=== PATIENT | female | born 1950 | race Caucasian/White ===

== ENCOUNTER → 2016-12-11 | Outpatient (CLI) | payer OTHER ==
--- NOTE | 2016-12-11 14:14 | RAD ---
HISTORY: Spinal stenosis, back pain Study: Lumbar spine AP and lateral Comparison: None Findings: The alignment is normal. The vertebral bodies are of average height. The disc spaces are preserved w ith the exception of degenerative disc disease at L5-S1. Facet degenerative joint disease is present in the lower lumbar spine. The pedicles are intact. The SI joints are normal. Incidental note is ma de of extensive calcification in the abdominal aorta with a question of a mid abdominal aorta up ane urysm having a maximum AP diameter of approximately 4.[address] of the abdo men pelvis with contrast is recommended. IMPRESSION: Degenerative disc disease L5-S1. Facet degenerative joint disease Likely partially calcified mid abdominal aortic aneurysm having a maximum diameter approximately 4.[address] abdomen pelvis with contrast is recommended for further evaluation. Reported By:
== END | disposition home or self-care (01) | DRG 552 ==
LOC: RAD 13:44
PROVIDERS: ATTEND Obstetrics & Gynecology Obstetrics
DX: M48.06 Spinal stenosis, lumbar region (principal); M51.37 Other intervertebral disc degeneration, lumbosacral region; M47.896 Other spondylosis, lumbar region
CPT/HCPCS: 72100

== ENCOUNTER → 2016-12-15 | Outpatient (CLI) | payer OTHER ==
[2016-12-15 11:29] LABS: CREATININE 3.35 mg/dL (0.55-1.02)
--- NOTE | 2016-12-15 12:51 | CT ---
HISTORY: Abnormal x-ray with question of abdominal aortic aneurysm. Study: CT abdomen and pelvis without contrast Comparison: Lumbar spine series dated December 11, 2016. Technique: Multiple axial images of the abdomen and pelvis were obtained from the lung bases to the pubic symph ysis after/ without/ both prior to and after the administration of IV contrast. Dose reduction tech niques including Automated Exposure Control (AEC) and adjustment of mA and kV were utilized. Findings: Bibasilar scarring versus atelectasis. Otherwise, the visualized portions of the lung bases are unre markable. Severe atherosclerotic vascular calcifications of the visualized coronary arteries. The ki dneys are small likely representing chronic renal disease. Likely vascular calcifications within the bilateral kidneys. The liver, spleen, pancreas, and adrenal glands are unremarkable in their CT ellie earance. Multiple gallstones are seen within the gallbladder without CT evidence to suggest cholecys titis. No significant mesenteric lymphadenopathy or stranding can be observed. No free fluid or fr ee air is seen within the abdomen. Moderate to severe atherosclerotic vascular calcifications of th e abdominal aorta and its major branch vessels. There is an infrarenal fusiform abdominal aortic ane urysm that measures 4.0 cm AP by 3.7 cm transverse in greatest dimension. No obvious mural thrombus on this non contrast study. Scattered colonic diverticula without evidence of diverticulitis. The la rge and small bowel otherwise appear normal. The appendix is normal. The uterus and ovaries are surg ically absent. The urinary bladder is grossly unremarkable. Degenerative changes of the spine. No a ggressive osseous lesions. IMPRESSION: 1. 4 cm abdominal aortic ultrasound as above. Recommend followup CT or ultrasound to document stabi lity in 12 months. 2. Other chronic findings as above. Reported By:
== END ==
LOC: RAD 10:50
PROVIDERS: ATTEND Obstetrics & Gynecology Obstetrics
DX: I71.9 Aortic aneurysm of unspecified site, without rupture (principal)
CPT/HCPCS: 36415; 74176; 82565; 84520

== ENCOUNTER 2016-12-18 14:51 | Inpatient (IN) | payer OTHER ==
[2016-12-18 15:32] LABS: MONOCYTES # (AUTO) 0.7 x10^3/uL (0.3-0.8); RED BLOOD COUNT 1.86 X10^6/uL (3.5-5.4); RED CELL DISTRIBUTION WIDTH 18.3 % (11.6-16.5)
[2016-12-18 15:38] LABS: BASOPHILS % (AUTO) 0.3 % (0.2-1.0); EOSINOPHILS % (AUTO) 0.4 % (0.9-2.9); LYMPHOCYTES # (AUTO) 1.3 X10^3/uL (1.3-2.9); LYMPHOCYTES % (AUTO) 14.8 % (21.0-51.0); MEAN CORPUSCULAR HEMOGLOBIN 22.8 pg (27.0-34.0); MEAN CORPUSCULAR HGB CONC 33.4 g/dL (33.0-35.0); MEAN CORPUSCULAR VOLUME 68.1 fL (80.0-100.0); MEAN PLATELET VOLUME 7.3 fL (7.4-11.0); MONOCYTES % (AUTO) 8.1 % (0.0-13.0); NEUTROPHILS # (AUTO) 6.6 x10^3/uL (2.2-4.8); NEUTROPHILS % (AUTO) 76.4 % (42.0-75.0); PLATELET COUNT 409 X10^3/uL (150.0-450.0); WHITE BLOOD COUNT 8.6 X10^3/uL (3.6-10.0)
[2016-12-18 15:39] LABS: ALANINE AMINOTRANSFERASE 249 Units/L (12-78); ALBUMIN 2.5 g/dL (3.4-5.0); ALKALINE PHOSPHATASE 101 Units/L (46-116); ASPARTATE AMINO TRANSFERASE 57 Units/L (15-37); BLOOD ALCOHOL < 3 mg/dL (0-19.9); BLOOD UREA NITROGEN 58 mg/dL (7-18); CALCIUM 8.4 mg/dL (8.5-10.1); CARBON DIOXIDE 20.3 mmol/L (21-32); CHLORIDE 99 mmol/L (98-107); COR CA(FOR HYPOALB) 9.6 mg/dL (8.5-10.1); CREATININE 3.67 mg/dL (0.55-1.02); GLUCOSE 101 mg/dL (65-99); SODIUM 132 mmol/L (136-145); TOTAL PROTEIN 6.4 g/dL (6.4-8.2); eGFR BLACK RACES 16 (>60); eGFR NON BLACK RACES 13 (>60)
[2016-12-18] MEDS: NS 1000 ML 1,000 ML IV SCH (15:53)
[2016-12-18 16:12] LABS: HEMATOCRIT 12.7 % (36.0-47.0); HEMOGLOBIN 4.2 g/dL (12.0-16.0)
[2016-12-18 16:22] LABS: ANISOCYTOSIS 1+; HYPOCHROMASIA 2+; MICROCYTOSIS 2+; PLATELET MORPHOLOGY COMMENT NORMAL (NORMAL); POIKILOCYTOSIS 2+; POLYCHROMASIA 1+
[2016-12-18 16:23] LABS: TARGET CELLS SLIGHT
[2016-12-18 16:54] LABS: IRON 15 ug/dL (50-175); TRANSFERRIN 313 mg/dL (202-364)
[2016-12-18] MEDS ORDERED: AQUA-MEPHYTON ADULT INJ 5 MG in NS 50 ML IV 50 ML IV ONE ×2 (17:20→18:00)
[2016-12-18] MEDS ORDERED: NS 50 ML IV 50 ML IV ONE (17:32)
[2016-12-18] MEDS ORDERED: AQUA-MEPHYTON ADULT INJ ONE (17:33)
[2016-12-18] MEDS ORDERED: NS 250 ML IV 250 ML IV ONE (18:24)
--- NOTE | 2016-12-18 20:24 | US ---
HISTORY: Elevated liver enzymes Study: Right upper quadrant abdominal ultrasound Comparison: CT 12/15/2016 Technique: Multiple franklin scale and color flow Doppler images of the right upper quadrant were obtain ed. Findings: The liver is normal in echotexture and size. No focal intraparenchymal mass or intrahepatic biliary ductal dilatation is observed. Multiple gallstones are present. The common bile duct measures 4 m m. No pericholecystic fluid or gallbladder wall thickening. No sonographic Lagos's sign reported. The right kidney is echogenic compatible with medical renal disease. The right kidney measurers 12 x 6 x 5.2 cm. No evidence of hydronephrosis. The pancreas was not visualized. IMPRESSION: 1. Cholelithiasis without sonographic evidence of cholecystitis. 2. Echogenic appearance of the right kidney suggesting medical renal disease. 3. Normal sonographic appearance of the liver. Reported By:
[2016-12-18] MEDS: LOPRESSOR TAB 50 MG PO SCH (21:08)
[2016-12-18] MEDS: ELAVIL PO SCH (21:08)
[2016-12-18] MEDS: XANAX PO PRN (23:00)
[2016-12-19] MEDS ORDERED: NS 250 ML IV 250 ML IV ONE (00:44)
[2016-12-19 06:27] LABS: ALANINE AMINOTRANSFERASE 201 Units/L (12-78); ALBUMIN 2.3 g/dL (3.4-5.0); ALKALINE PHOSPHATASE 95 Units/L (46-116); ASPARTATE AMINO TRANSFERASE 44 Units/L (15-37); BLOOD UREA NITROGEN 52 mg/dL (7-18); CALCIUM 8.4 mg/dL (8.5-10.1); CARBON DIOXIDE 20.8 mmol/L (21-32); CHLORIDE 103 mmol/L (98-107); COR CA(FOR HYPOALB) 9.8 mg/dL (8.5-10.1); CREATININE 3.23 mg/dL (0.55-1.02); GLUCOSE 97 mg/dL (65-99); SODIUM 134 mmol/L (136-145); TOTAL PROTEIN 6.1 g/dL (6.4-8.2); eGFR BLACK RACES 18 (>60); eGFR NON BLACK RACES 15 (>60)
[2016-12-19] MEDS: NS 1000 ML 1,000 ML IV SCH ×2 (06:32→20:51)
[2016-12-19 06:34] LABS: BASOPHILS % (AUTO) 0.5 % (0.2-1.0); EOSINOPHILS # (AUTO) 0.3 x10^3/uL (0.0-0.2); EOSINOPHILS % (AUTO) 2.5 % (0.9-2.9); LYMPHOCYTES # (AUTO) 1.9 X10^3/uL (1.3-2.9); LYMPHOCYTES % (AUTO) 19.1 % (21.0-51.0); MEAN CORPUSCULAR HEMOGLOBIN 24.5 pg (27.0-34.0); MEAN CORPUSCULAR HGB CONC 33.6 g/dL (33.0-35.0); MEAN CORPUSCULAR VOLUME 73.1 fL (80.0-100.0); MEAN PLATELET VOLUME 7.2 fL (7.4-11.0); MONOCYTES # (AUTO) 0.8 x10^3/uL (0.3-0.8); NEUTROPHILS # (AUTO) 7.1 x10^3/uL (2.2-4.8); NEUTROPHILS % (AUTO) 69.9 % (42.0-75.0); PLATELET COUNT 372 X10^3/uL (150.0-450.0); RED BLOOD COUNT 2.44 X10^6/uL (3.5-5.4); RED CELL DISTRIBUTION WIDTH 19.6 % (11.6-16.5); WHITE BLOOD COUNT 10.1 X10^3/uL (3.6-10.0)
[2016-12-19 06:37] LABS: HEMATOCRIT 17.8 % (36.0-47.0)
[2016-12-19 07:54] LABS: PLATELET MORPHOLOGY COMMENT NORMAL (NORMAL)
[2016-12-19 07:55] LABS: HYPOCHROMASIA 1+; MICROCYTOSIS 1+; POIKILOCYTOSIS 2+; POLYCHROMASIA SLIGHT
[2016-12-19 07:56] LABS: TARGET CELLS SLIGHT
[2016-12-19] MEDS: LOPRESSOR TAB 50 MG PO SCH ×2 (10:07→20:52)
[2016-12-19] MEDS: NICODERM PATCH 21 MG/24 HR TD SCH (10:09)
[2016-12-19 10:30] VITALS: BMI 30.8
[2016-12-19] MEDS ORDERED: NS 500 ML IV 500 ML IV ONE (15:42)
[2016-12-19 18:45] LABS: HEMATOCRIT 22.8 % (36.0-47.0); HEMOGLOBIN 7.7 g/dL (12.0-16.0)
[2016-12-19] MEDS: ELAVIL PO SCH (20:52)
[2016-12-19] MEDS: XANAX PO PRN (20:52)
[2016-12-19 22:45] LABS: HEMATOCRIT 21.3 % (36.0-47.0); HEMOGLOBIN 7.3 g/dL (12.0-16.0)
[2016-12-20 05:46] LABS: BASOPHILS # (AUTO) 0.1 X10^3/uL (0.0-0.1); BASOPHILS % (AUTO) 0.8 % (0.2-1.0); EOSINOPHILS # (AUTO) 0.3 x10^3/uL (0.0-0.2); EOSINOPHILS % (AUTO) 3.8 % (0.9-2.9); HEMATOCRIT 21.4 % (36.0-47.0); HEMOGLOBIN 7.3 g/dL (12.0-16.0); LYMPHOCYTES # (AUTO) 1.5 X10^3/uL (1.3-2.9); LYMPHOCYTES % (AUTO) 16.2 % (21.0-51.0); MEAN CORPUSCULAR HEMOGLOBIN 25.8 pg (27.0-34.0); MEAN CORPUSCULAR VOLUME 75.9 fL (80.0-100.0); MEAN PLATELET VOLUME 7.4 fL (7.4-11.0); MONOCYTES # (AUTO) 0.8 x10^3/uL (0.3-0.8); MONOCYTES % (AUTO) 8.6 % (0.0-13.0); NEUTROPHILS # (AUTO) 6.4 x10^3/uL (2.2-4.8); NEUTROPHILS % (AUTO) 70.6 % (42.0-75.0); PLATELET COUNT 386 X10^3/uL (150.0-450.0); RED BLOOD COUNT 2.82 X10^6/uL (3.5-5.4); RED CELL DISTRIBUTION WIDTH 20.4 % (11.6-16.5)
[2016-12-20 05:47] LABS: ALANINE AMINOTRANSFERASE 165 Units/L (12-78); ALBUMIN 2.4 g/dL (3.4-5.0); ALKALINE PHOSPHATASE 110 Units/L (46-116); ASPARTATE AMINO TRANSFERASE 36 Units/L (15-37); BLOOD UREA NITROGEN 43 mg/dL (7-18); CALCIUM 8.8 mg/dL (8.5-10.1); CHLORIDE 105 mmol/L (98-107); COR CA(FOR HYPOALB) 10.1 mg/dL (8.5-10.1); CREATININE 3.02 mg/dL (0.55-1.02); GLUCOSE 108 mg/dL (65-99); SODIUM 138 mmol/L (136-145); TOTAL PROTEIN 6.4 g/dL (6.4-8.2); eGFR BLACK RACES 20 (>60); eGFR NON BLACK RACES 16 (>60)
[2016-12-20 06:17] LABS: ANISOCYTOSIS 1+; CRENATED RBC 1+; HYPOCHROMASIA 1+; PLATELET MORPHOLOGY COMMENT NORMAL (NORMAL)
[2016-12-20] MEDS ORDERED: NS 250 ML IV 250 ML IV ONE ×3 (07:46→22:02)
[2016-12-20] MEDS: LOPRESSOR TAB 50 MG PO SCH ×2 (09:18→21:00)
[2016-12-20] MEDS: NICODERM PATCH 21 MG/24 HR TD SCH (09:20)
[2016-12-20] MEDS ORDERED: NS 500 ML IV 500 ML IV ONE (11:42)
[2016-12-20] MEDS ORDERED: PATIENT'S HOME MEDICATION (Metoprolol Tartrate [Lopressor Tab 100 Mg] 100 MG) PO SCH (11:45)
[2016-12-20] MEDS ORDERED: NS 100 ML IV 100 ML with VENOFER 400 MG IV NR ×2 (13:00)
[2016-12-20 13:25] LABS: HEMATOCRIT 24.9 % (36.0-47.0); HEMOGLOBIN 8.3 g/dL (12.0-16.0)
[2016-12-20] MEDS ORDERED: AMITRIPTYLINE HCL PO SCH (21:00)
[2016-12-20] MEDS: ELAVIL PO SCH (21:00)
[2016-12-20] MEDS: XANAX PO PRN (23:47)
[2016-12-21] MEDS: NS 1000 ML 1,000 ML IV SCH (03:01)
[2016-12-21 06:17] LABS: ALBUMIN 2.3 g/dL (3.4-5.0); ALKALINE PHOSPHATASE 113 Units/L (46-116); ASPARTATE AMINO TRANSFERASE 31 Units/L (15-37); BASOPHILS # (AUTO) 0.1 X10^3/uL (0.0-0.1); BASOPHILS % (AUTO) 0.6 % (0.2-1.0); BLOOD UREA NITROGEN 35 mg/dL (7-18); CALCIUM 8.5 mg/dL (8.5-10.1); CARBON DIOXIDE 20.5 mmol/L (21-32); CHLORIDE 106 mmol/L (98-107); COR CA(FOR HYPOALB) 9.9 mg/dL (8.5-10.1); CREATININE 2.69 mg/dL (0.55-1.02); EOSINOPHILS # (AUTO) 0.3 x10^3/uL (0.0-0.2); EOSINOPHILS % (AUTO) 3.3 % (0.9-2.9); GLUCOSE 92 mg/dL (65-99); HEMATOCRIT 29.4 % (36.0-47.0); HEMOGLOBIN 9.9 g/dL (12.0-16.0); LYMPHOCYTES # (AUTO) 1.4 X10^3/uL (1.3-2.9); LYMPHOCYTES % (AUTO) 15.2 % (21.0-51.0); MEAN CORPUSCULAR HEMOGLOBIN 26.1 pg (27.0-34.0); MEAN CORPUSCULAR HGB CONC 33.6 g/dL (33.0-35.0); MEAN CORPUSCULAR VOLUME 77.9 fL (80.0-100.0); MEAN PLATELET VOLUME 7.4 fL (7.4-11.0); MONOCYTES # (AUTO) 0.8 x10^3/uL (0.3-0.8); MONOCYTES % (AUTO) 8.5 % (0.0-13.0); NEUTROPHILS # (AUTO) 6.4 x10^3/uL (2.2-4.8); NEUTROPHILS % (AUTO) 72.4 % (42.0-75.0); PLATELET COUNT 332 X10^3/uL (150.0-450.0); RED BLOOD COUNT 3.77 X10^6/uL (3.5-5.4); RED CELL DISTRIBUTION WIDTH 20.9 % (11.6-16.5); SODIUM 135 mmol/L (136-145); TOTAL PROTEIN 6.2 g/dL (6.4-8.2); WHITE BLOOD COUNT 8.9 X10^3/uL (3.6-10.0); eGFR BLACK RACES 23 (>60); eGFR NON BLACK RACES 19 (>60)
[2016-12-21 06:27] LABS: ALANINE AMINOTRANSFERASE 129 Units/L (12-78)
[2016-12-21 07:06] LABS: ANISOCYTOSIS 1+; PLATELET MORPHOLOGY COMMENT NORMAL (NORMAL)
[2016-12-21 08:37] VITALS: BP 127/64
[2016-12-21] MEDS: NICODERM PATCH 21 MG/24 HR TD SCH (08:47)
[2016-12-21] MEDS: LOPRESSOR TAB 50 MG PO SCH (08:48)
[2016-12-21] MEDS ORDERED: NS 100 ML IV 100 ML with VENOFER 400 MG IV NR ×2 (09:00)
== END 2016-12-21 11:45 | disposition home or self-care (01) | DRG 812 ==
LOC: MED/SURG 14:51 → UNDOADMIN 14:51 → MED/SURG 15:00
PROVIDERS: ADMIT Obstetrics & Gynecology Obstetrics; ATTEND Obstetrics & Gynecology Obstetrics
PROC: 30233N1 Transfusion of Nonautologous Red Blood Cells into Peripheral Vein, Percutaneous Approach (ICD-10-PCS; principal; 2016-12-18)
PROC: 30233N1 Transfusion of Nonautologous Red Blood Cells into Peripheral Vein, Percutaneous Approach (ICD-10-PCS; 2016-12-19)
PROC: 30233N1 Transfusion of Nonautologous Red Blood Cells into Peripheral Vein, Percutaneous Approach (ICD-10-PCS; 2016-12-19)
PROC: 30233N1 Transfusion of Nonautologous Red Blood Cells into Peripheral Vein, Percutaneous Approach (ICD-10-PCS; 2016-12-20)
PROC: 30233N1 Transfusion of Nonautologous Red Blood Cells into Peripheral Vein, Percutaneous Approach (ICD-10-PCS; 2016-12-20)
PROC: 30233N1 Transfusion of Nonautologous Red Blood Cells into Peripheral Vein, Percutaneous Approach (ICD-10-PCS; 2016-12-20)
DX: D64.89 Other specified anemias (principal); I48.91 Unspecified atrial fibrillation; R94.5 Abnormal results of liver function studies; R94.4 Abnormal results of kidney function studies; R79.1 Abnormal coagulation profile; N18.9 Chronic kidney disease, unspecified; I70.1 Atherosclerosis of renal artery
CPT/HCPCS: 36415; 36430; 76705; 80053; 80320; 82270; 82607; 82728; 82746; 83540; 84425; 84466; 85014; 85018; 85025; 85610; 86850; 86900; 86901; 86922; 93005; 93010; A4222; P9016; G6040; J3430

== ENCOUNTER 2017-09-14 07:49 | Emergency (ER) | payer OTHER ==
[2017-09-14 08:23] VITALS: BMI 37.8
--- NOTE | 2017-09-14 08:25 | CT ---
STUDY: CT HEAD WITHOUT CONTRAST HISTORY: Left-sided facial drooping. Unable to speak. COMPARISON: None. TECHNIQUE: Multiple axial images of the head were obtained from the skull base to the vertex without administration of IV contrast. Automated exposure control (AEC) was utilized to adjust the MA and/or kV. Findings: The sulci, cisterns and ventricles are prominent consistent with diffuse volume loss. There are confluent and scattered foci of low attenuation in the periventricular and subcortical whit e matter of both hemispheres. This is a nonspecific finding which likely represents microangiopathic change in a patient of this age. There is an old infarct with encephalomalacia involving the low right parietal lobe, with extension i nto the right temporal lobe. There is ex vacuo dilatation of the posterior horn and temporal horn of the right lateral ventricle. There is also extension of infarction into the right occipital lobe. Th ere is an old lacunar infarct in the left caudate head and left putamen. There is no evidence of acute territorial infarction, hemorrhage, mass, mass effect or midline shift. There are no abnormal extra-axial fluid collections. There is no evidence of acute osseous abnormality or significant soft tissue swelling. IMPRESSION: 1. No evidence of acute intracranial abnormality. 2. Old infarct in the right occipital lobe with extension of the right parietal and temporal lobes. 3. Old lacunar infarct in the left caudate head and putamen. 4. Nonspecific white matter change and volume loss as described. 5. If there remains strong clinical concern for acute intracranial abnormality, then an MRI examinati on should be considered for further evaluation. Reported By:
--- NOTE | 2017-09-14 08:29 | RAD ---
Chest, one view Indication: Left-sided facial drooping, unable to speak Comparison: None Findings: The patient is rotated toward the right and the left lung apex is partially excluded from t he exam. Given these limitations, the heart is mildly enlarged. There is mild diffuse bilateral inter stitial prominence, suggestive for edema. No focal consolidation, significant effusion or pneumothora x is identified. There is no acute osseous abnormality. Impression: Technically limited exam, as above. Mild cardiomegaly and interstitial edema, suggestive for CHF. Reported By:
[2017-09-14 08:32] LABS: BASOPHILS # (AUTO) 0.1 X10^3/uL (0.0-0.1); BASOPHILS % (AUTO) 1.3 % (0.2-1.0); EOSINOPHILS # (AUTO) 0.1 x10^3/uL (0.0-0.2); EOSINOPHILS % (AUTO) 1.1 % (0.9-2.9); HEMATOCRIT 25.4 % (36.0-47.0); HEMOGLOBIN 8.2 g/dL (12.0-16.0); LYMPHOCYTES # (AUTO) 0.7 X10^3/uL (1.3-2.9); LYMPHOCYTES % (AUTO) 8.6 % (21.0-51.0); MEAN CORPUSCULAR HEMOGLOBIN 23.1 pg (27.0-34.0); MEAN CORPUSCULAR HGB CONC 32.4 g/dL (33.0-35.0); MEAN CORPUSCULAR VOLUME 71.3 fL (80.0-100.0); MEAN PLATELET VOLUME 7.4 fL (7.4-11.0); MONOCYTES # (AUTO) 0.3 x10^3/uL (0.3-0.8); MONOCYTES % (AUTO) 4.1 % (0.0-13.0); NEUTROPHILS # (AUTO) 6.8 x10^3/uL (2.2-4.8); NEUTROPHILS % (AUTO) 84.9 % (42.0-75.0); PLATELET COUNT 603 X10^3/uL (150.0-450.0); RED BLOOD COUNT 3.56 X10^6/uL (3.5-5.4)
[2017-09-14 08:44] LABS: ALANINE AMINOTRANSFERASE 13 Units/L (12-78); ALKALINE PHOSPHATASE 105 Units/L (46-116); ASPARTATE AMINO TRANSFERASE 16 Units/L (15-37); BLOOD UREA NITROGEN 38 mg/dL (7-18); CALCIUM 8.9 mg/dL (8.5-10.1); CARBON DIOXIDE 22.5 mmol/L (21-32); CHLORIDE 104 mmol/L (98-107); COR CA(FOR HYPOALB) 10.5 mg/dL (8.5-10.1); CREATININE 4.64 mg/dL (0.55-1.02); SODIUM 137 mmol/L (136-145); eGFR BLACK RACES 12 (>60); eGFR NON BLACK RACES 10 (>60)
[2017-09-14 08:49] LABS: HYPOCHROMASIA 1+; PLATELET MORPHOLOGY COMMENT NORMAL (NORMAL)
[2017-09-14 08:58] LABS: ABG BASE EXCESS -6.2 mmol/L (-2.0-2.0); ABG HCO3 19.6 mmol/L (22-26)
--- NOTE | 2017-09-14 09:04 | DR.GENAD ---
HPI - PCP Primary Care Physician: DR. ALEJO - HPI Comment HPI Comment: TOLD EMS SHE WAS NOT TALKING RIGHT YESTERDAY. PATIENT SAID NO TO ALL MY QUESTIONS AND OPEN HER MOUTH WHEN SHE WAS ASK. SHE IS TRYING TO POINT TO HER THROAT. - Complaint/Symptoms Chief Complaint Doctors Comments: PATIENT RESTLERSS, NOT TALKING AND HOLDING HER CHEST. Chief Complaint:: PT EMS OUT TO UNKNOWN PER EMS.. EMS STATES ON SEEN AND IS POOR HISTORIAN , PT IS SEEN TO HAVE SOME RIGHT FACIAL DROOPYNESS AND DYSPHAGIA PT IS ALERT AT THIS TIME PT TT STRETCHER TO BED .. Self Treatment fo Chief Complaint: PT SMELLS OF CIGARETTES AND SHE HAD CIGARETTE HURT TO HER GOWN. - Nurses notes reviewed Nurses Notes Review: Yes - Source History Provided: Patient - Mode of Arrival Mode of Arrival: Stretcher - Timing Onset of Chief Complaint: 09/14/17 Came on: Suddenly - Duration Duration: Constant Duration: Days - Severity Severity: Moderate PMH - PMH Past Medical History: Yes Past Medical History Comment: [place] , Past Surgical History: Yes Surgical History: Hysterectomy, Other - Family History History of Family Medical Conditions: No - Social History Does patient currently use any type of tobacco product: No Have you used tobacco products in the last 12 months: No Does any household member use tobacco: No Alcohol Use: None Do you use any recreational Drugs:: No Lives With: Family Lives Where: Home - infectious screening In the last 2 months have you had wt loss of >10#?: NO Have you had fever, night sweats or hemotysis?: No Have you traveled outside the country in the last 6 months?: No Isolation: Standard ROS - Review of Systems Constitutional: negative: Chills, Fever, Weakness, Fatigue Eyes: negative: Eye Pain, Discharge ENTM: Throat Pain. negative: Ear Pain, Nose Discharge, Nose Congestion Respiratoy: Non-Productive Cough, Short of Breath, Wheezing. negative: Hemoptysis Gastrointestinal/Abdominal: Abdominal Pain. negative: Diarrhea, Nausea, Vomiting Genitourinary: negative: Dysuria, Hematuria Neurological: Headache. negative: Weakness, Dizziness Musculoskeletal: No Symptoms Reported Integumentary: No Symptoms Reported Hematologic/Lymphatic: Anemia Endocrine: No Symptoms Reported Unable to Obtain Due To: Altered mental status PE - Vital Signs Vitals: Temperature 98.0 F Pulse Rate [Apical] 94 Pulse Rate 89 Respiratory Rate 20 Blood Pressure [Left Arm] 127/64 Blood Pressure [Right Arm] 182/90 Blood Pressure 126/57 O2 Sat by Pulse Oximetry 92 - General Limitations: Altered Mental Status - Head Head Exam: Normal Inspection - Eyes Eye exam: PERRL - ENT ENT Exam: Normal External Ear Exam External Ear Exam: Normal External Inspection TM/Canal Exam: Bilateral Normal Nose Exam: Normal Nose Exam Mouth Exam: Normal Inspection MDM - Differential Diagnosis Differential Diagnosis: CVA, FL, PE, SEPSIS Course - Treatment Treatment: SEE ORDERS - Consultation Consultation Comments: DER. ROMERO AT [facility] [place] PATIENT.FOR TRANSFER. ROR - Labs Reviewed Laboratory Results Reviewed?: Yes Result Diagrams: 09/14/17 08:15 09/14/17 08:15 Laboratory: WBC 8.0 X10^3/uL (3.6-10.0) 09/14/17 08:15 RBC 3.56 X10^6/uL (3.5-5.4) 09/14/17 08:15 Hgb 8.2 g/dL (12.0-16.0) L 09/14/17 08:15 Hct 25.4 % (36.0-47.0) L 09/14/17 08:15 MCV 71.3 fL (80.0-100.0) L 09/14/17 08:15 MCH 23.1 pg (27.0-34.0) L 09/14/17 08:15 MCHC 32.4 g/dL (33.0-35.0) L 09/14/17 08:15 RDW 20.0 % (11.6-16.5) H 09/14/17 08:15 Plt Count 603 X10^3/uL (150.0-450.0) H 09/14/17 08:15 Plt Count Comment Increased (ADEQUATE) A 09/14/17 08:15 MPV 7.4 fL (7.4-11.0) 09/14/17 08:15 Neut % 84.9 % (42.0-75.0) H 09/14/17 08:15 Lymph % 8.6 % (21.0-51.0) L 09/14/17 08:15 [place] % 4.1 % (0.0-13.0) 09/14/17 08:15 Eos % 1.1 % (0.9-2.9) 09/14/17 08:15 Baso % 1.3 % (0.2-1.0) H 09/14/17 08:15 Neut # 6.8 x10^3/uL (2.2-4.8) H 09/14/17 08:15 Lymph # 0.7 X10^3/uL (1.3-2.9) L 09/14/17 08:15 [place] # 0.3 x10^3/uL (0.3-0.8) 09/14/17 08:15 Eos # 0.1 x10^3/uL (0.0-0.2) 09/14/17 08:15 Baso # 0.1 X10^3/uL (0.0-0.1) 09/14/17 08:15 Absolute Nucleated RBC 0.0 /100WBC 09/14/17 08:15 Plt Morphology Comment Normal (NORMAL) 09/14/17 08:15 RBC Morphology Abnormal (NORMAL) A 09/14/17 08:15 Hypochromasia 1+ A 09/14/17 08:15 INR Target Range - 09/14/17 08:15 INR 1.26 (0.8-1.3) 09/14/17 08:15 PTT 37.6 SECONDS (22.9-36.5) H 09/14/17 08:15 PTT Comment - 09/14/17 08:15 D-Dimer 2660 ng/mL (0-400) H* 09/14/17 08:15 Sample Site Rb 09/14/17 08:35 ABG pH 7.310 (7.35-7.45) L 09/14/17 08:35 ABG pCO2 39.0 mmHg (35.0-45.0) 09/14/17 08:35 ABG pO2 98.0 mmHg (80.0-100.0) 09/14/17 08:35 ABG HCO3 19.6 mmol/L (22-26) L 09/14/17 08:35 ABG O2 Saturation 97.0 % (90-100) 09/14/17 08:35 ABG Base Excess -6.2 mmol/L (-2.0-2.0) L 09/14/17 08:35 Samuel Test Na 09/14/17 08:35 A-a Gradient 53.0 mmHg 09/14/17 08:35 FiO2 28.000 09/14/17 08:35 Blood Gas Comments Arias well lj 09/14/17 08:35 Sodium 137 mmol/L (136-145) 09/14/17 08:15 Corrected Sodium TNP 09/14/17 08:15 Potassium 3.4 mmol/L (3.5-5.1) L 09/14/17 08:15 Chloride 104 mmol/L (98-107) 09/14/17 08:15 Carbon Dioxide 22.5 mmol/L (21-32) 09/14/17 08:15 BUN 38 mg/dL (7-18) H 09/14/17 08:15 Creatinine 4.64 mg/dL (0.55-1.02) H 09/14/17 08:15 Est GFR (MDRD) Af Amer 12 (>60) L 09/14/17 08:15 Est GFR (MDRD) Non-Af 10 (>60) L 09/14/17 08:15 Glucose 105 mg/dL (65-99) H 09/14/17 08:15 Calcium 8.9 mg/dL (8.5-10.1) 09/14/17 08:15 Corrected Calcium 10.5 mg/dL (8.5-10.1) H 09/14/17 08:15 Total Bilirubin 0.20 mg/dL (0.2-1.0) 09/14/17 08:15 AST 16 Units/L (15-37) 09/14/17 08:15 ALT 13 Units/L (12-78) 09/14/17 08:15 Alkaline Phosphatase 105 Units/L (46-116) 09/14/17 08:15 Creatine Kinase 58 Units/L (26-192) 09/14/17 11:15 CK-MB (CK-2) 2.3 ng/mL (0-4.0) 09/14/17 11:15 CK/CKMB % Calc 4.0 % (<4) 09/14/17 11:15 Troponin I 0.30 ng/mL (0-1.5) 09/14/17 11:15 B-Natriuretic Peptide 2310 pg/mL (0-79) H* 09/14/17 08:15 Total Protein 8.0 g/dL (6.4-8.2) 09/14/17 08:15 Albumin 2.0 g/dL (3.4-5.0) L 09/14/17 08:15 Globulin 6.0 g/dL (2.5-4.5) H 09/14/17 08:15 Albumin/Globulin Ratio 0.3 Ratio (1.1-2.1) L 09/14/17 08:15 Specimen Type Catherized urine 09/14/17 09:52 Urine Color Yellow (YELLOW) 09/14/17 09:52 Urine Appearance Clear (CLEAR) 09/14/17 09:52 Urine pH 6.0 (5.0 - 8.0) 09/14/17 09:52 Ur Specific [place] 1.015 (1.000-1.030) 09/14/17 09:52 Urine Protein 4+ (NEGATIVE) 09/14/17 09:52 Urine Glucose (UA) 2+ (NEGATIVE) 09/14/17 09:52 Urine Ketones Negative (NEGATIVE) 09/14/17 09:52 Urine Occult Blood 1+ (NEGATIVE) 09/14/17 09:52 Urine Nitrite Negative (NEGATIVE) 09/14/17 09:52 Urine Bilirubin Negative (NEGATIVE) 09/14/17 09:52 Urine Urobilinogen Normal (NORMAL) 09/14/17 09:52 Ur Leukocyte Esterase Negative (NEGATIVE) 09/14/17 09:52 Urine RBC Rare /HPF (NONE SEEN) 09/14/17 09:52 Urine WBC None seen /HPF (NONE SEEN) 09/14/17 09:52 Ur Squamous Epith Cells Rare /HPF (NEGATIVE) 09/14/17 09:52 Amorphous Sediment 1+ /HPF (NEGATIVE) 09/14/17 09:52 Urine Bacteria Negative /HPF (NEGATIVE) 09/14/17 09:52 Urine Mucus Few /HPF (NEGATIVE) 09/14/17 09:52 Ur Culture Indicated? No/not indicated 09/14/17 09:52 Urine Opiates Screen Negative (NEG=<300) 09/14/17 09:52 Urine Methadone Screen Negative (NEG=<300) 09/14/17 09:52 Ur Barbiturates Screen Negative (NEG=<200) 09/14/17 09:52 Ur Phencyclidine Scrn Negative (NEG=<25) 09/14/17 09:52 Ur Amphetamines Screen Negative (NEG=<1000) 09/14/17 09:52 U Benzodiazepines Scrn Negative (NEG=<200) 09/14/17 09:52 Urine Cocaine Screen Negative (NEG=<300) 09/14/17 09:52 U Marijuana (THC) Screen Negative (NEG=<50) 09/14/17 09:52 - XRAY XRAY Findings: REPORT NOTED - EKG Rhythm: Afib - Diagnosis Discharge Problem: Abnormal cardiac enzyme level Mental status alteration Qualifiers: Altered mental status type: unspecified Qualified Code(s): R41.82 - Altered mental status, unspecified CHF (congestive heart failure) Qualifiers: Heart failure type: combined systolic and diastolic Heart failure chronicity: acute on chronic Qualified Code(s): I50.43 - Acute on chronic combined systolic (congestive) and diastolic (congestive) heart failure - Discharge Plan Disposition: 02 XFER [facility] Condition: Stable - Follow ups/Referrals Follow ups/Referrals: CELIO ALEJO [Primary Care Provider] - 3 days - Instructions
[2017-09-14 09:31] LABS: CREATINE KINASE MB 2.1 ng/mL (0-4.0); TROPONIN I 0.33 ng/mL (0-1.5)
[2017-09-14] MEDS ORDERED: ZOFRAN INJ 4 MG VIAL IVP ONE (09:58)
[2017-09-14] MEDS ORDERED: ZOFRAN INJ 4 MG VIAL ONE (09:58)
[2017-09-14] MEDS ORDERED: MORPHINE SULFATE INJ 4 MG IVP ONE (09:58)
[2017-09-14] MEDS ORDERED: LASIX IVP ONE ×2 (09:58)
[2017-09-14] MEDS ORDERED: LOVENOX INJ 100 MG SYR SC ONE (09:59)
[2017-09-14] MEDS ORDERED: MORPHINE SULFATE INJ 4 MG ONE (09:59)
[2017-09-14 10:07] LABS: BILIRUBIN,URINE NEGATIVE (NEGATIVE); BLOOD/HEMOGLOBIN,URINE 1+ (NEGATIVE); GLUCOSE, URINE 2+ (NEGATIVE); KETONES,URINE NEGATIVE (NEGATIVE); LEUKOCYTE ESTERASE ,URINE NEGATIVE (NEGATIVE); NITRITES,URINE NEGATIVE (NEGATIVE); PROTEIN,URINE 4+ (NEGATIVE); UROBILINOGEN,URINE NORMAL (NORMAL)
[2017-09-14 10:19] LABS: APPEARANCE,URINE CLEAR (CLEAR); COLOR,URINE YELLOW (YELLOW); RBC,URINE RARE /HPF (NONE SEEN); SQUAMOUS EPITHELIAL CELL,UR RARE /HPF (NEGATIVE)
[2017-09-14 10:20] LABS: AMORPHOUS SEDIMENT,UR 1+ /HPF (NEGATIVE); BACTERIA,URINE NEGATIVE /HPF (NEGATIVE); MUCUS,URINE FEW /HPF (NEGATIVE)
[2017-09-14] MEDS: ATIVAN INJ 2 MG VIAL IVP ONE ×2 (10:51→12:22)
[2017-09-14 11:09] VITALS: BP 182/90
[2017-09-14 11:47] LABS: CREATINE KINASE MB 2.3 ng/mL (0-4.0); TROPONIN I 0.3 ng/mL (0-1.5)
[2017-09-14] MEDS ORDERED: ATIVAN INJ 2 MG VIAL ONE (12:15)
[2017-09-15] MEDS ORDERED: LOVENOX INJ 100 MG SYR SC SCH (09:00)
== END 2017-09-14 12:46 | disposition short-term general hospital (02) ==
LOC: ER 07:55
DX: R41.82 Altered mental status, unspecified (principal); R94.8 Abnormal results of function studies of other organs and systems; I50.43 Acute on chronic combined systolic (congestive) and diastolic (congestive) heart failure; R51 Headache
CPT/HCPCS: 36415; 36600; 51702; 70450; 71045; 80053; 80307; 81001; 82550; 82553; 82803; 83880; 84484; 85025; 85378; 85610; 85730; 93005; 93010; 96365; 96372; 96374; 96375; 99284; 99285; A4222; G0434; J1650; J1940; J2060; J2270; J2405